=== PATIENT | female | born 1975 | race Caucasian/White ===

== ENCOUNTER 2016-06-24 11:28 | Emergency (ER) | payer SELFPAY ==
--- NOTE | 2016-06-24 11:47 | EDPRACDOC ---
- General Information Chief Complaint: Bite Stated Complaint: DOG BITE - LEFT LOWER LEG Time Seen by Provider: 06/24/16 11:35 Information Source: Patient Information Source: Patient Mode Of Arrival: Car Home Medications: Home Medications Amox Tr/Potassium Clavulanate [Augmentin Tablet (875mg/125mg)] 1 tab PO BID #20 tablet 06/24/16 Hydrochlorothiazide 50 mg PO DAILY #30 tablet 06/24/16 Allergies/Adverse Reactions: Allergies Allergy/AdvReac Type Severity Reaction Status Date / Time No Known Allergies Allergy Unverified 10/26/11 08:44 - History of Present Illness Onset: [employer] HPI: Pt states she went to her friends house and a new dog bit her L lower leg. Rabies UTD. Tetanus unknown. Denies pain. C/o puncture wounds and bruising. Bite Location: Reports: Other (leg) Bite Cause: Dog Symptoms: Reports: Bruising Bite Wound: Reports: Puncture Animal Immunization Status: Current Pain Severity: None Shortness of Breath: None Pruritus Severity: None Last Tetanus: No Associated signs and symptoms: Reports: Swelling ED Past Medical History - History Reviewed Yes Nurses notes reviewed and agree except as marked - Patient Medical History Cardiac History: Reports: Hypertension Psychological History: Reports: Depression, Anxiety Surgical History: Reports: Cholecystectomy. Denies: Hysterectomy - Social Medical History Smoking Status: Current status unknown ETOH: None Substance Abuse: None EDM Review of Systems - Review of Systems Constitutional: No Symptoms Reported. negative: Fever, Chills, Weakness, Fatigue, Loss of Appetite Respiratory: No Symptoms Reported. negative: Cough, Brassy Cough, Barky Cough, Shortness of Breath, Wheezing, Hemoptysis Cardiovascular: No Symptoms Reported. negative: Chest Pain, Palpitations, Syncope, Edema, Orthopnea, PND, Skin Mottling, Cyanosis Gastrointestinal: No Symptoms Reported. negative: Pain, Constipation, Nausea, Vomiting, Diarrhea, Melena, Formula Intolerance Neurological: No Symptoms Reported. negative: Headache, Dizziness, Seizure, Numbness, Weakness, Speech Difficulty, Gait Difficulty Musculoskeletal: Leg Integumentary: Bruising, Wound Allergic/Immunologic: No Symptoms Reported. negative: Hives, Itching Hematologic: No Symptoms Reported. negative: Lymphadenopathy, Easy Bruising, Easy Bleeding Psychiatric: No Symptoms Reported. negative: Anxiety, Depression, Hallucinations, Insomnia, Suicidal - Physical Exam Constitutional: Alert Oriented to: Time, Person, Place Last recorded Vital Signs: Oxygen Pulse Oxygen Saturation O2 Device Oxygen Flow Rate Fraction of Inspired Oxygen ( FIO2) - HEENT Head: Normal ( normocephalic) Neck: Normal (FROM, trachea at midline) - Respiratory/Cardiovascular Respiratory: Normal - CTA (BBS clear to auscultation without adventitious sounds ) Cardiovascular: Normal (RRR without murmur, gallop or rub) - GI Auscultation: Normal (NABS) Palpation: Normal (Soft,No rebound or guarding, non distended) Tenderness: Non tender - Musculoskeletal Back: Normal (Non-Tender) Extremities: Normal (Normal tone, Pulses 2+ No cyanosis or edema, FROM) - Integumentary Skin: Normal, Warm, Dry Lymphatics: Normal (no adenopathy) - Neurologic Memory Impaired: Normal Motor Function: Normal (Normal tone, Pulses 2+ No cyanosis or edema, FROM) Mood Description: Normal Perception: Normal ED Bite Exam - Bite Exam Bite Location: Other (leg) Wound: Puncture Involvement: Immediate Area Pain Severity: None Involved Limb Distal/Sensory Function: Normal Body Image: 1 - puncture wound x 3 with surrounding ecchymosis and swelling. 2 puncture wounds also have abrasion extending from them. No surrounding erythema - Differential Diagnosis Abrasion, Cellulitis, Puncture wound - Additional Information Pt states she has HTN but is not on meds because she doesn't have insurance and cant afford them. Will give HCTZ due to cost and availability. Encouraged to follow up for further BP management. Decision Time to Discharge: 11:45 - Departure Disposition: Home Condition: Good Final Diagnosis: Dog bite Puncture wound, lower leg Qualifiers: Encounter type: initial encounter Laterality: left Qualified Code(s): S81.832A - Puncture wound without foreign body, left lower leg, initial encounter HTN (hypertension) Qualifiers: Hypertension type: essential hypertension Qualified Code(s): I10 - Essential ( primary) hypertension Instructions: Animal Bite (ED), Puncture Wound (ED), Chronic Hypertension (ED) Education/Counseling Given To: Patient Education/Counseling Given Regarding: Diagnosis, Treatment, Follow Up Referrals: None,No Provider [Primary Care Provider] - One Week Sathya Sneed MD [Staff Physician] - One Week Prescriptions: Amox Tr/Potassium Clavulanate [Augmentin Tablet (875mg/125mg)] 1 tab PO BID #20 tablet Hydrochlorothiazide 50 mg PO DAILY #30 tablet Additional Instructions: Return for worse or different symptoms.
[2016-06-24 11:51] VITALS: TEMP 98.4
[2016-06-24] MEDS ORDERED: DIPHTHERIA AND TETANUS (ADULT) 0.5 ML SYR IM ONE (11:52)
[2016-06-24 11:53] VITALS: BMI 39.9
[2016-06-24] MEDS ORDERED: TETANUS-DIPTHERIA-ACEL PERTUSS 0.5 ML SYR IM ONE (11:56)
[2016-06-24 12:17] VITALS: BP 192/118; PULSE 102
== END 2016-06-24 12:15 | disposition home or self-care (01) ==
LOC: ED 11:28
DX: S81.852A Open bite, left lower leg, initial encounter (principal); W54.0XXA Bitten by dog, initial encounter; Y93.9 Activity, unspecified; Z23 Encounter for immunization
CPT/HCPCS: 90471; 90715; 99283